=== PATIENT | female | born 1975 | race Caucasian/White ===

== ENCOUNTER 2020-01-16 19:00 | Emergency (ER) | payer BC ==
[2020-01-16] MEDS ORDERED: Ondansetron 4 MG/2 ML SDV IVPUSH ONE (19:37)
[2020-01-16] MEDS ORDERED: Sodium Chloride 0.9% 1,000 ML IV SCH (19:45)
--- NOTE | 2020-01-16 21:20 | EDM.PDOC ---
ED HPI GENERAL MEDICAL PROBLEM - General Chief Complaint: General Stated Complaint: Medication reaction Time Seen by Provider: 01/16/20 19:15 Source of Information: Reports: Family History Limitations: Reports: No Limitations - History of Present Illness INITIAL COMMENTS - FREE TEXT/NARRATIVE: Patient presented to the ED with his boyfriend because she looks disoriented, confused, and lethargic since she too her gabapentin and and tylenol with melatonin. Patient denies any use of street drugs. There is no h/o attempted suicide or any anxiety, and depression. She takes the gabapentin and tylenol with codeine pop her chronic pain. - Related Data Allergies Allergy/AdvReac Type Severity Reaction Status Date / Time clindamycin Allergy Rash Verified 01/03/20 11:52 latex Allergy Hives Verified 01/03/20 11:52 morphine Allergy Swelling Verified 01/03/20 11:52 sertraline HCl [From Zoloft] Allergy Diarrhea Verified 01/03/20 11:52 sulfamethoxazole Allergy Cannot Verified 01/03/20 11:52 [From Bactrim] Remember trimethoprim [From Bactrim] Allergy Cannot Verified 01/03/20 11:52 Remember Home Meds: Home Meds Gabapentin [Neurontin] 600 mg PO TID 12/20/19 [History] Melatonin/Pyridoxine HCl (B6) [Melatonin 3 mg Tablet] 6 mg PO BEDTIME 01/16/20 [ History] Past Medical History - Past Health History Medical/Surgical History: Denies Medical/Surgical History 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 - Recreational Drug Use Recreational Drug Use: No - Living Situation & Occupation Living situation: Reports: with Family ED ROS GENERAL - Review of Systems Review Of Systems: See Below Constitutional: Reports: No Symptoms HEENT: Reports: No Symptoms Respiratory: Reports: No Symptoms Cardiovascular: Reports: No Symptoms Endocrine: Reports: No Symptoms GI/Abdominal: Reports: No Symptoms, Nausea. Denies: Vomiting : Reports: No Symptoms Musculoskeletal: Reports: No Symptoms Skin: Reports: No Symptoms Neurological: Reports: Trouble Speaking. Denies: Headache Psychiatric: Denies: Hallucinations, Homicidal Ideation, Suicidal Ideation Hematologic/Lymphatic: Reports: No Symptoms Immunologic: Reports: No Symptoms ED EXAM, GENERAL - Physical Exam Exam: See Below Exam Limited By: Altered Mental Status General Appearance: No Apparent Distress Ears: Normal External Exam, Normal Canal Nose: Normal Inspection, Normal Mucosa, No Blood Throat/Mouth: Normal Inspection, Normal Lips, Normal Teeth, Normal Gums Head: Atraumatic, Normocephalic Neck: Normal Inspection, Supple, Non-Tender, Full Range of Motion Respiratory/Chest: No Respiratory Distress, Lungs Clear, Normal Breath Sounds, No Accessory Muscle Use, Chest Non-Tender Cardiovascular: Normal Peripheral Pulses, Regular Rate, Rhythm, No Edema, No Gallop, No JVD, No Murmur, No Rub GI/Abdominal: Normal Bowel Sounds, Soft, Non-Tender, No Organomegaly, No Distention, No Abnormal Bruit Back Exam: Normal Inspection, Full Range of Motion Extremities: Normal Inspection, Normal Range of Motion Neurological: Confused, Disoriented Psychiatric: Normal Affect Course - Vital Signs Text/Narrative:: Labs reviewed with patient and BF NS 1 L bolus Zofran 4 mg IV x1 BF said she can go home and will just take care of her tonight. He said Monique had done the same in the past took more gabapentin then what is prescribed. Last Recorded V/S: Last Vital Signs Temp 36.7 C 01/16/20 21:38 Pulse 103 H 01/16/20 21:38 Resp 17 01/16/20 21:38 BP 110/64 01/16/20 21:38 Pulse Ox 98 01/16/20 21:38 - Orders/Labs/Meds Labs: Laboratory Tests 01/16/20 01/16/20 01/16/20 Range/Units 19:45 19:45 19:45 WBC 9.3 (4.5-12.0) X10-3/uL RBC 4.48 (3.23-5.20) x10(6)uL Hgb 13.9 (11.5-15.5) g/dL Hct 40.9 (30.0-51.3) % MCV 91.3 (80-96) fL MCH 31.1 (27.7-33.6) pg MCHC 34.0 (32.2-35.4) g/dL RDW 12.5 (11.5-15.5) % Plt Count 263 (125-369) X10(3)uL MPV 8.3 (7.4-10.4) fL Neut % (Auto) 51.6 (46-82) % Lymph % (Auto) 35.1 (13-37) % [place] % (Auto) 10.0 (4-12) % Eos % (Auto) 3 (1.0-5.0) % Baso % (Auto) 1 (0-2) % Neut # (Auto) 4.8 (1.6-8.3) # Lymph # (Auto) 3.3 (0.6-5.0) # [place] # (Auto) 0.9 (0.0-1.3) # Eos # (Auto) 0.3 (0.0-0.8) # Baso # (Auto) 0.0 (0.0-0.2) # Sodium 141 (135-145) mmol/L Potassium 3.9 (3.5-5.3) mmol/L Chloride 104 (100-110) mmol/L Carbon Dioxide 26 (21-32) mmol/L BUN 16 (7-18) mg/dL Creatinine 0.9 (0.55-1.02) mg/dL Est Cr Clr Drug Dosing 79.13 mL/min Estimated GFR (MDRD) > 60 (>60) BUN/Creatinine Ratio 17.8 (9-20) Glucose 105 (80-116) mg/dL Calcium 8.0 L (8.6-10.2) mg/dL Total Bilirubin 0.2 (0.1-1.3) mg/dL AST 29 H (5-25) IU/L ALT 14 (12-36) U/L Alkaline Phosphatase 60 (56-112) IU/L Total Protein 7.2 (6.0-8.0) g/dL Albumin 3.4 L (3.5-5.2) g/dL Globulin 3.8 g/dL Albumin/Globulin Ratio 0.9 Urine Opiates Screen (NEGATIVE) Ur Oxycodone Screen (NEGATIVE) Ur Propoxyphene Screen (NEGATIVE) Ur Barbituates Screen (NEGATIVE) Ur Tricyclics Screen (NEGATIVE) Ur Phencyclidine Scrn (NEGATIVE) Ur Amphetamine Screen (NEGATIVE) Urine MDMA Screen (NEGATIVE) U Benzodiazepines Scrn (NEGATIVE) U Cocaine Metab Screen (NEGATIVE) U Marijuana (THC) Screen (NEGATIVE) Ethyl Alcohol < 0.03 (<0.03) % 01/16/20 Range/Units 21:12 WBC (4.5-12.0) X10-3/uL RBC (3.23-5.20) x10(6)uL Hgb (11.5-15.5) g/dL Hct (30.0-51.3) % MCV (80-96) fL MCH (27.7-33.6) pg MCHC (32.2-35.4) g/dL RDW (11.5-15.5) % Plt Count (125-369) X10(3)uL MPV (7.4-10.4) fL Neut % (Auto) (46-82) % Lymph % (Auto) (13-37) % [place] % (Auto) (4-12) % Eos % (Auto) (1.0-5.0) % Baso % (Auto) (0-2) % Neut # (Auto) (1.6-8.3) # Lymph # (Auto) (0.6-5.0) # [place] # (Auto) (0.0-1.3) # Eos # (Auto) (0.0-0.8) # Baso # (Auto) (0.0-0.2) # Sodium (135-145) mmol/L Potassium (3.5-5.3) mmol/L Chloride (100-110) mmol/L Carbon Dioxide (21-32) mmol/L BUN (7-18) mg/dL Creatinine (0.55-1.02) mg/dL Est Cr Clr Drug Dosing mL/min Estimated GFR (MDRD) (>60) BUN/Creatinine Ratio (9-20) Glucose (80-116) mg/dL Calcium (8.6-10.2) mg/dL Total Bilirubin (0.1-1.3) mg/dL AST (5-25) IU/L ALT (12-36) U/L Alkaline Phosphatase (56-112) IU/L Total Protein (6.0-8.0) g/dL Albumin (3.5-5.2) g/dL Globulin g/dL Albumin/Globulin Ratio Urine Opiates Screen Positive H (NEGATIVE) Ur Oxycodone Screen Negative (NEGATIVE) Ur Propoxyphene Screen Negative (NEGATIVE) Ur Barbituates Screen Negative (NEGATIVE) Ur Tricyclics Screen Negative (NEGATIVE) Ur Phencyclidine Scrn Negative (NEGATIVE) Ur Amphetamine Screen Negative (NEGATIVE) Urine MDMA Screen Negative (NEGATIVE) U Benzodiazepines Scrn Negative (NEGATIVE) U Cocaine Metab Screen Negative (NEGATIVE) U Marijuana (THC) Screen Positive H (NEGATIVE) Ethyl Alcohol (<0.03) % Meds: Medications Discontinued Medications Generic Name Dose Route Start Last Admin Trade Name Freq PRN Reason Stop Dose Admin Sodium Chloride 1,000 mls @ 999 mls/hr 01/16/20 19:45 01/16/20 19:56 Normal Saline IV 999 mls/hr ASDIRECTED DARIEL Administration Ondansetron HCl 4 mg 01/16/20 19:37 01/16/20 19:59 Zofran IVPUSH 01/16/20 19:38 4 mg ONETIME ONE Administration Departure - Departure Time of Disposition: 21:55 Disposition: Home, Self-Care 01 Condition: Good Clinical Impression: Altered level of consciousness, Medication reaction - Discharge Information Instructions: Confusion, Drug Toxicity Referrals: PCP,None [Primary Care Provider] - Forms: ED Department Discharge Additional Instructions: Take your pain medication as prescribed. Do not take more than what you are suppose to take Somebody need to supervise your intake of your pain medication especially the gabapentin follow up as needed Sepsis Event Note - Evaluation Sepsis Screening Result: No Definite Risk - Focused Exam Date Exam was Performed: 01/17/20 Time Exam was Performed: 14:03
[2020-01-16 22:12] VITALS: BP 110/64; PULSE 103
== END 2020-01-16 21:50 | disposition home or self-care (01) ==
LOC: FB.ED 19:00
DX: R41.0 Disorientation, unspecified (principal); T42.6X5A Adverse effect of other antiepileptic and sedative-hypnotic drugs, initial encounter; T40.2X5A Adverse effect of other opioids, initial encounter; T50.995A Adverse effect of other drugs, medicaments and biological substances, initial encounter; G89.29 Other chronic pain; M54.9 Dorsalgia, unspecified; F17.210 Nicotine dependence, cigarettes, uncomplicated; Z88.1 Allergy status to other antibiotic agents; Z88.5 Allergy status to narcotic agent; Z91.040 Latex allergy status; Z88.2 Allergy status to sulfonamides
CPT/HCPCS: 36415; 80053; 80305; 80307; 85025; 96361; 96374; 99284; J2405; J7030